=== PATIENT | female | born 1960 | race Caucasian/White ===

== ENCOUNTER 2024-07-26 07:06 | Day surgery (SDC) | payer MEDICARE ==
[~2024-07-26] VITALS: Ht 165.1 cm; Wt 72.7 kg
[~2024-07-26 07:06] MED LIST: BETA15CR40 TOP; CLON-850 PO; CYAN-116; FLUO-167 PO; GABA-1405 PO; IBUP-1985 PO; LAMO200T10 PO; QUET-1 PO; VITD400T PO
[2024-07-26 07:20] VITALS: BP 108/62; PULSE 96; RESP 21; TEMP 97.3
[2024-07-26] MEDS ORDERED: midazolam 1 mg/ML 2ml injection ONE (08:24)
[2024-07-26] MEDS ORDERED: fentaNYL/PF 50MCG/1 ML 2ML syringe ONE (08:24)
[2024-07-26] MEDS ORDERED: LIDOcaine 2% (20mg/ml) 5ml vial ONE (09:19)
[2024-07-26] MEDS ORDERED: propofol inj 20 ML IV ONE (09:19)
[2024-07-26 09:25] VITALS: BP 109/64; PULSE 74; RESP 12; O2SAT 99
[2024-07-26 09:35] VITALS: BP 113/70; PULSE 73; RESP 12; O2SAT 97
[2024-07-26 09:45] VITALS: BP 108/70; PULSE 73; RESP 12; O2SAT 97
[2024-07-26 09:55] VITALS: BP 112/66; PULSE 64; RESP 12; O2SAT 98
== END 2024-07-26 10:05 | disposition home or self-care (01) ==
LOC: GI LAB 07:06
PROVIDERS: ATTEND Internal Medicine Gastroenterology
DX: Z12.11 Encounter for screening for malignant neoplasm of colon (principal); D12.5 Benign neoplasm of sigmoid colon; K57.30 Diverticulosis of large intestine without perforation or abscess without bleeding; Z86.0100 Personal history of colon polyps, unspecified; F31.9 Bipolar disorder, unspecified; Z79.82 Long term (current) use of aspirin; Z98.890 Other specified postprocedural states
CPT/HCPCS: 45385; 88305; C1889; J2003; J2250; J2704; J3010; J7030; Z7512; 45380